=== PATIENT | female | born 1965 | race Caucasian/White ===

== ENCOUNTER 2023-06-11 14:34 | Outpatient (CLI) | payer BC | END 2023-06-11 14:35 | disposition home or self-care (01) | LOC: BICMAMMO 14:34 | PROVIDERS: ATTEND Nurse Practitioner | DX: Z12.31 Encounter for screening mammogram for malignant neoplasm of breast (principal); Z80.3 Family history of malignant neoplasm of breast | CPT/HCPCS: 77063; 77067 ==